=== PATIENT | female | born 1945 | race Caucasian/White ===

== ENCOUNTER 2021-11-12 12:46 | Emergency (ER) | payer MEDICARE, BC ==
[~2021-11-12 12:46] MED LIST: Iopamidol 370 76% 100 ML VIAL ONE
[2021-11-12 15:10] LABS: #Basophils 0.1 10x3/uL (0.0-0.2); #Eosinphils 0.2 10x3/uL (0.0-0.5); #Monocytes 0.6 10x3/uL (0.0-1.1); %Basophils 0.6 % (0.0-2.0); %Eosinophils 2.4 % (0.0-6.0); %Lymphocytes 24.9 % (18.0-47.0); %Monocytes 8.1 % (0.0-10.0); %Neutrophils 63.6 % (40.0-75.0); Hemoglobin 13.3 g/dL (12.0-15.5); Mean Corpuscular HGB CONC 35.5 g/dL (32.0-36.0); Mean Corpuscular Hemoglobin 30.1 pg (27.0-33.0); Mean Corpuscular Volume 84.8 fl (81.6-98.3); Platelet Count 166 10x3/uL (150-450); RBC Distribution Width 12.1 % (11.5-14.5); Red Blood Cell (RBC) Count 4.42 10x6/uL (3.90-5.03); White Blood Cell (WBC) Count 7.9 10x3/uL (3.5-10.5)
[2021-11-12 15:26] LABS: ALT (SGPT) 36 U/L (8-55); AST (SGOT) 37 U/L (5-34); Albumin 3.6 g/dL (3.4-4.8); Alkaline Phosphatase 104 U/L (40-110); Anion Gap 14 mmol/L (10-20); BUN (Urea Nitrogen) 14 mg/dL (9.8-20.1); Bilirubin, Total 0.7 mg/dL (0.2-1.2); Calc. Creatinine Clearance 0 mL/min (70-130); Calcium 9.4 mg/dL (7.8-10.44); Carbon Dioxide 30 mmol/L (23-31); Chloride 101 mmol/L (98-107); Globulin 2.6 g/dL (2.4-3.5); Glucose 170 mg/dL (83-110); Potassium 4.2 mmol/L (3.5-5.1); Protein, Total 6.2 g/dL (5.8-8.1); Sodium 141 mmol/L (136-145)
== END 2021-11-12 18:18 | disposition home or self-care (01) ==
LOC: CSHERS 12:46
DX: U07.1 COVID-19 (principal); R06.02 Shortness of breath; I10 Essential (primary) hypertension; E11.9 Type 2 diabetes mellitus without complications; I48.91 Unspecified atrial fibrillation; E78.5 Hyperlipidemia, unspecified
CPT/HCPCS: 71045; 71275; 80053; 83605; 84484; 85025; Q9967

== ENCOUNTER 2023-11-04 14:20 | Outpatient (CLI) | payer MEDICARE | END 2023-11-04 14:21 | disposition home or self-care (01) | LOC: CSHRAD 14:20 | PROVIDERS: ATTEND Anesthesiology Pain Medicine | DX: Z01.818 Encounter for other preprocedural examination (principal); Z95.0 Presence of cardiac pacemaker; M48.062 Spinal stenosis, lumbar region with neurogenic claudication | CPT/HCPCS: 71046 ==

== ENCOUNTER 2023-11-06 13:38 | Outpatient (CLI) | payer MEDICARE | END 2023-11-06 13:39 | disposition home or self-care (01) | LOC: CSHMRI 13:38 | PROVIDERS: ATTEND Anesthesiology Pain Medicine | DX: M48.062 Spinal stenosis, lumbar region with neurogenic claudication (principal); M51.36 Other intervertebral disc degeneration, lumbar region; M48.07 Spinal stenosis, lumbosacral region | CPT/HCPCS: 72148 ==

== ENCOUNTER 2024-02-23 11:21 | Outpatient (CLI) | payer MEDICARE | END 2024-02-23 11:22 | disposition home or self-care (01) | LOC: CSHMAMMO 11:21 | PROVIDERS: ATTEND Family Medicine | DX: M85.851 Other specified disorders of bone density and structure, right thigh (principal) | CPT/HCPCS: 77080 ==